=== PATIENT | female | born 1970 | race Caucasian/White ===

== ENCOUNTER → 2018-05-02 | Outpatient (REF) ==
[2018-05-02 17:17] LABS: THYROID STIMULATING HORMONE 2.12 uIU/mL (0.465-4.680)
== END ==
LOC: ZLAB.WCH 16:09
PROVIDERS: Physician Assistant
DX: Z01.89 Encounter for other specified special examinations (principal)

== ENCOUNTER → 2021-05-15 | Outpatient (CLI) | payer OTHER ==
[~2021-05-15] VITALS: Ht 162.6 cm; Wt 104.9 kg
[~2021-05-15] MED LIST: BIRTH CONTROL PO; MASON NATURAL2000 IU PO; PHARMASSURE ZIN50 MG PO; VITAMINC1000TA PO
[2021-05-15 12:02] VITALS: BP 157/101; PULSE 73; TEMP 97.8
[2021-05-15 13:45] VITALS: BP 173/97; PULSE 71
== END ==
LOC: COL.RAD 11:43
DX: R59.9 Enlarged lymph nodes, unspecified (principal)